=== PATIENT | male | born 1960 | race African-American/Black ===

== ENCOUNTER 2017-02-15 10:35 | Day surgery (SDC) | payer MEDICARE, BC ==
--- NOTE | ~2017-02-15 | OP ---
Record Of Operation [facility] [address] [place]. [address] NAME: HARSHA AVILEZ : 62 STATUS : REG [facility] [place] PAT#: [id number] AGE: 56 ADM/REG DATE : 02/15/17 MR#: [id number] REPORT SERV DATE: 02/15/17 DICTATED BY: YUE DANGELO DATE: 02/15/17 REPORT STATUS : Draft TRANSCRIBED BY: CLOTILDE DATE: 02/15/17 DATE OF PROCEDURE: 02/15/2017 PREOPERATIVE DIAGNOSIS: Diabetic ulcer right 5th toe. POSTOPERATIVE DIAGNOSIS: Diabetic ulcer right 5th toe. PROCEDURE: Right 5th toe amputation interphalangeal. SURGEON: Yue Dangelo M.D. ANESTHESIA: Local with sedation. COMPLICATIONS: None. BLOOD LOSS: Minimal. HISTORY: The patient is a 56-year-old male with history of diabetes, has a new ulcer on his right 5th toe. It was felt that he would benefit from toe amputation. This was discussed in detail with the patient. He expressed understanding and desired to proceed. DESCRIPTION OF PROCEDURE: The patient was taken to the operating room and placed in supine position. He was given IV sedation without complication. The right foot was prepped and draped in sterile fashion. 10 mL of 1% lidocaine was infiltrated in the skin and subcutaneous tissues. An incision was created around the base of the 5th toe with a long lateral flap of healthy skin. This was continued to the level of the proximal phalanx. Bone cutter was used to divide the toe at the proximal phalanx and the specimen sent off to Pathology. Rongeur was used to ream the proximal phalanx back to a smooth edge. Bovie cautery was used to achieve hemostasis. The wound was copiously irrigated. Once the wound was felt to be adequate, the wound was closed using a long lateral flap to the medial edge and multiple interrupted 3-0 Ethilon vertical mattress sutures. The patient tolerated the procedure well. Sterile dressings applied. He was taken to the recovery room in stable condition. GLADIS/CLOTILDE Yue Dangelo M.D. / [id number] CC: Danika Reyes M.D.
[~2017-02-15 10:35] MED LIST: ACET500CAP PO; ADVAIR INH; ADVAIR100 INH; ADVAIR250 INH; ADVICOR1 TAB PO; ALTACE10 MG PO; ASA 81MG; ASA5GR PO; ASAB PO; ASABAYER PO; ATV.5 PO; ATV1 PO; AUG875 PO; Advair PO; B COMPLE OR; BUTRANS1 EAC1 TOP; C1 PO; C5 PO; CAT1 PO; CIALIS2.5 MG PO; CILOXAN OPH; CLARIT10 PO; CLARITD24H PO; COUMADIN4 MG PO; D.O.S.100 MG PO; DCN100 PO; DEPO TESTOSTERONE; DEPO-TESTOS200 MG/M1 IM; DSS PO; FERROUS SULF325 M1 PO; FERROUS SULFATE PO; FOSRENOL1000 MG PO; HUMALOG KW200 UNIT/1 SC; IRON160 MG PO; IRON325 MG PO; LOM PO; LORTAB10 PO; MIDODRINE; MYCOSCROI TOP; NEPHRO PO; NEUR300 PO; NEXIUM40 PO; NIACIN 500 PO; NIACIN PO; NIASPAN PO; NIASPAN500 PO; NORCO1 TA1 PO; NORCO1 TAB PO; PAIN MED PO; PATANOL OPH; PAXIL40 MG PO; PHOSLO PO; POLYMYXIN B OPH; PRILO PO; PRILOSEC40 MG PO; PROAIR HFA INH; PROAMATINE10 MG PO; RENAGEL PO; RENAL SFTGLS1 MG PO; ROLAIDS PO; SENSIPAR30 M1 OR; SENSIPAR30 M1 PO; SENSIPAR60 MG OR; SENSIPAR90 MG OR; SINGULAIR1 PO; TESTOSTERONE IM; TOPAMAX100 PO; TOPAMAX25 PO; TOPAMAX50 MG PO; TRAZ50 PO; TRIMETHOPRIM OPH; TUMSROLL PO; ULTRAM50 PO; UREA 40% CREAM TOP; ZEMPLAR IV; ZOSYN375 IV; [UNRECOGNIZED DRUG - CODE] PO
[2017-02-15 11:48] LABS: BASOPHILS 0.4 %; BASOPHILS ABSOLUTE 0.05 10/3/uL (0.0-0.16); EOSINOPHILS 6.3 %; EOSINOPHILS ABSOLUTE 0.74 10/3/uL (0.0-0.53); HEMATOCRIT 33.9 % (40.0-51.0); HEMOGLOBIN 10.7 g/dL (13.6-17.8); IMMATURE GRANULOCYTES 0.3 %; IMMATURE GRANULOCYTES ABSOLUTE 0.04 10/3/uL (0.0-0.11); LYMPHOCYTES 13.7 %; MEAN CORPUS HGB CONC 31.6 g/dL (32.0-36.0); MEAN CORPUSCULAR HEMOGLOB 33.2 pg (26.0-34.0); MEAN CORPUSCULAR VOLUME 105.3 fL (80-100); MEAN PLATELET VOLUME 10.9 fL (9.2-13.0); MONOCYTES 3.8 %; MONOCYTES ABSOLUTE 0.44 10/3/uL (0.21-1.20); NEUTROPHILS 75.5 %; NEUTROPHILS ABSOLUTE 8.82 10/3/uL (2.02-8.40); PLATELET COUNT 227 10/3/uL (150-400); RBC DISTRIBUTION WIDTH 15.2 % (12.0-16.0); RED CELL COUNT 3.22 10/6/uL (4.7-6.1); WHITE BLOOD CELLS 11.7 10/3/uL (4.5-10.5)
[2017-02-15 11:54] LABS: MANUAL DIFF NO %
[2017-02-15 11:55] LABS: INTERNATIONAL NORMAL RATI 1.9 UNITS (-)
[2017-02-15 12:02] LABS: CALCIUM, SERUM 8.7 MG/DL (8.5-10.4); CHLORIDE, SERUM 101 MMOL/L (96-112); CO2 (CARBON DIOXIDE) 23 MMOL/L (24-34); GFR AFRICAN AMERICAN 4 ML/MIN (>=60); GFR NON AFRICAN AMERICAN 3 ML/MIN (>=60); GLUCOSE, SERUM 106 MG/DL (60-99); POTASSIUM, SERUM 4.8 MMOL/L (3.5-5.3); SODIUM, SERUM 140 MMOL/L (135-148)
[2017-02-15 12:04] LABS: BUN (BLOOD UREA NITROGEN) 58 MG/DL (6-23)
[2017-05-16] MEDS ORDERED: TOPAMAX100 PO (17:27)
[2017-05-16] MEDS ORDERED: TESTOSTERONE IM (17:28)
[2017-05-16] MEDS ORDERED: COUMADIN4 MG PO (17:28)
[2017-05-16] MEDS ORDERED: ASABAYER PO (17:29)
[2017-05-16] MEDS ORDERED: NEPHROCAPS PO (17:29)
[2017-05-16] MEDS ORDERED: PAXIL40 MG PO (17:29)
[2017-05-16] MEDS ORDERED: ADVAIR INH (17:30)
[2017-05-16] MEDS ORDERED: NIACIN100 PO (17:31)
[2017-05-16] MEDS ORDERED: SINGULAIR1 PO (17:31)
[2017-05-16] MEDS ORDERED: NEUR300 PO (17:31)
[2017-05-16] MEDS ORDERED: TUMSROLL PO (17:31)
[2017-05-16] MEDS ORDERED: PROAMATINE10 MG PO (17:32)
[2017-05-16] MEDS ORDERED: D.O.S.100 MG PO (17:32)
[2017-05-16] MEDS ORDERED: NORCO1 TAB PO (17:32)
[2017-05-16] MEDS ORDERED: NEXIUM40 PO (17:33)
[2017-05-16] MEDS ORDERED: CLARIT10 PO (17:33)
[2017-05-16] MEDS ORDERED: FERROUS SULF325 M1 PO (17:33)
[2017-05-16] MEDS ORDERED: SEROQUEL25 PO (17:41)
== END 2017-02-15 18:33 | disposition home or self-care (01) ==
LOC: SDC 10:35
PROVIDERS: Surgery
PROC: 0Y6X0Z1 Detachment at Right 5th Toe, High, Open Approach (ICD-10-PCS; principal; 2017-02-15 11:15)
DX: E11.621 Type 2 diabetes mellitus with foot ulcer (principal); L97.519 Non-pressure chronic ulcer of other part of right foot with unspecified severity; I70.235 Atherosclerosis of native arteries of right leg with ulceration of other part of foot; M86.9 Osteomyelitis, unspecified; E11.21 Type 2 diabetes mellitus with diabetic nephropathy; I13.11 Hypertensive heart and chronic kidney disease without heart failure, with stage 5 chronic kidney disease, or end stage renal disease; E11.22 Type 2 diabetes mellitus with diabetic chronic kidney disease; N18.6 End stage renal disease; G25.81 Restless legs syndrome; G47.33 Obstructive sleep apnea (adult) (pediatric); K21.9 Gastro-esophageal reflux disease without esophagitis; I48.91 Unspecified atrial fibrillation; I48.92 Unspecified atrial flutter; M19.90 Unspecified osteoarthritis, unspecified site; M10.9 Gout, unspecified; F17.210 Nicotine dependence, cigarettes, uncomplicated; N25.81 Secondary hyperparathyroidism of renal origin; Z98.890 Other specified postprocedural states; J45.909 Unspecified asthma, uncomplicated; Z88.5 Allergy status to narcotic agent; Z88.1 Allergy status to other antibiotic agents; Z88.8 Allergy status to other drugs, medicaments and biological substances
CPT/HCPCS: 80048; 82962; 85025; 85610; 88305; 88311; 93005; J0690; J2250; J2370; J3010; P9045